=== PATIENT | female | born 1950 | race Caucasian/White ===

== ENCOUNTER 2021-06-28 15:56 | Inpatient (IN) | payer MEDICARE ==
[~2021-06-28] VITALS: Ht 157.5 cm; Wt 56.4 kg
--- NOTE | 2021-06-28 19:30 | NUR ---
Admission report received from [facility].
--- NOTE | 2021-06-28 19:59 | NUR ---
Patient arrived in the unit accompanied by 2 EMT's via gurney from [facility]. Awake, alert, conversant and pleasant. In no apparent distress. Transferred from gurney to bed with minimal assist. Able to repositioned self for comfort without difficulty. Fall precaution and safety precaution initiated. Routine admission care done. Plan of care initiated.
[2021-06-28] MEDS ORDERED: ENOX40DI SQ (20:19)
[2021-06-28] MEDS ORDERED: IBAN150T16 PO (20:19)
[2021-06-28] MEDS ORDERED: LEVO25TA9 PO (20:19)
[2021-06-28] MEDS ORDERED: ACET-73 PO (20:19)
[2021-06-28] MEDS ORDERED: PANT40TA49 PO (20:19)
[2021-06-28] MEDS ORDERED: LIDO30AD10 TD (20:19)
[2021-06-28] MEDS ORDERED: IBUP-1953 PO (20:19)
[2021-06-28 20:30] VITALS: BP 108/53
[2021-06-28] MEDS: REMEDY ESSENTIAL ZINC PASTE 113 GM TOP SCH (21:10)
[2021-06-28] MEDS ORDERED: IBANDRONATE SODIUM 150 MG PO SCH (21:45)
[2021-06-28] MEDS ORDERED: ACETAMINOPHEN ES 500 MG TABLET- SA PATIENTS-PAIN ONLY PO PRN (21:45)
[2021-06-28] MEDS ORDERED: BISACODYL 10 MG SUPP.RECT RC PRN (21:45)
[2021-06-29] MEDS: IBUPROFEN 400 MG TABLET PO PRN ×2 (02:47→08:30)
[2021-06-29 04:12] VITALS: BP 102/53
[2021-06-29] MEDS ORDERED: ACETAMINOPHEN 325 MG TABLET PO PRN (05:45)
[2021-06-29 06:43] LABS: HEMATOCRIT 38.6 % (31.2-41.9); MEAN CORPUSCULAR HEMOGLOBIN 30.7 uug (24.7-32.8); MEAN CORPUSCULAR VOLUME 88.5 fL (75.5-95.3); PLATELET COUNT (AUTO) 165 K/uL (179-408)
[2021-06-29 07:12] LABS: THYROID STIMULATING HORMONE 2.168 mIU/mL (0.358-3.740)
[2021-06-29 07:42] LABS: BILIRUBIN,TOTAL 0.3 mg/dL (0.2-1.0); CREATININE 0.8 mg/dL (0.6-1.3); MAGNESIUM 2.5 mg/dL (1.8-2.4); PHOSPHOROUS 3.7 mg/dL (2.5-4.9); POTASSIUM 5.2 mmol/L (3.5-5.1); TOTAL PROTEIN, SERUM 6.4 g/dL (6.4-8.2)
[2021-06-29 08:01] VITALS: BP 104/56
[2021-06-29] MEDS: LEVOTHYROXINE SODIUM 25 MCG TABLET PO SCH (08:29)
[2021-06-29] MEDS: PANTOPRAZOLE SODIUM 40 MG TABLET.DR PO SCH (08:30)
[2021-06-29] MEDS: REMEDY ESSENTIAL ZINC PASTE 113 GM TOP SCH ×2 (08:30→21:02)
[2021-06-29] MEDS: ENOXAPARIN SODIUM 40 MG/0.4 ML DISP.SYRIN SQ SCH (08:39)
[2021-06-29] MEDS ORDERED: LIDOCAINE 5% PATCH TD SCH (09:00)
[2021-06-29] MEDS: LIDOCAINE 5% PATCH TD SCH (09:01)
[2021-06-29] MEDS: HYDROCODONE/APAP 5-325MG TABLET PO PRN ×2 (14:26→22:03)
[2021-06-29 16:30] VITALS: BP 93/45
--- NOTE | 2021-06-29 17:19 | NUR ---
patient is alert, oriented x4, no events noted during shift, pain to right ribs managed with pain medications and with nonpharmacological interventions, effective, patient was able to participate with PT, OT services, tolerated well. no acute distress noted.
[2021-06-29 20:09] VITALS: BP 92/75
[2021-06-29] MEDS: DOCUSATE SODIUM 100 MG CAPSULE PO SCH (20:46)
[2021-06-30 04:12] VITALS: BP 105/48
[2021-06-30] MEDS: HYDROCODONE/APAP 5-325MG TABLET PO PRN ×4 (05:32→23:04)
[2021-06-30] MEDS: LEVOTHYROXINE SODIUM 25 MCG TABLET PO SCH (05:33)
[2021-06-30] MEDS: ENOXAPARIN SODIUM 40 MG/0.4 ML DISP.SYRIN SQ SCH (08:11)
[2021-06-30] MEDS: LIDOCAINE 5% PATCH TD SCH (08:12)
[2021-06-30] MEDS: REMEDY ESSENTIAL ZINC PASTE 113 GM TOP SCH ×2 (08:13→20:35)
[2021-06-30] MEDS: PANTOPRAZOLE SODIUM 40 MG TABLET.DR PO SCH (08:13)
[2021-06-30 08:29] VITALS: BP 100/47
--- NOTE | 2021-06-30 13:27 | NUR ---
INTERDISCIPLINARY TEAM CONFERENCE
[2021-06-30] MEDS ORDERED: SIMETHICONE 80 MG TAB.CHEW PO PRN (13:45)
[2021-06-30 17:17] VITALS: BP 92/48
--- NOTE | 2021-06-30 18:46 | NUR ---
patient is alert, oriented x4, no sob, resp even nonlabored, skin warm and dry to touch, no acute distress noted.
[2021-06-30 20:00] VITALS: BP 90/30
[2021-06-30] MEDS: DOCUSATE SODIUM 100 MG CAPSULE PO SCH (20:35)
[2021-06-30 21:00] VITALS: BP 120/61
[2021-07-01 04:35] VITALS: BP 104/49
[2021-07-01] MEDS: LEVOTHYROXINE SODIUM 25 MCG TABLET PO SCH (06:09)
[2021-07-01 08:05] VITALS: BP 105/50
[2021-07-01] MEDS: PANTOPRAZOLE SODIUM 40 MG TABLET.DR PO SCH (08:12)
[2021-07-01] MEDS: LIDOCAINE 5% PATCH TD SCH (08:12)
[2021-07-01] MEDS: REMEDY ESSENTIAL ZINC PASTE 113 GM TOP SCH ×2 (08:13→20:54)
[2021-07-01] MEDS: HYDROCODONE/APAP 5-325MG TABLET PO PRN ×3 (08:54→22:11)
[2021-07-01 15:22] VITALS: BP 140/59
--- NOTE | 2021-07-01 15:38 | NUR ---
INDIVIDUALIZED PLAN OF CARE
--- NOTE | 2021-07-01 18:50 | NUR ---
no events noted during shift
[2021-07-01 20:15] VITALS: BP 104/49
[2021-07-01] MEDS: DOCUSATE SODIUM 100 MG CAPSULE PO SCH (20:54)
[2021-07-02 05:13] VITALS: BP 100/48
[2021-07-02] MEDS: LEVOTHYROXINE SODIUM 25 MCG TABLET PO SCH (05:45)
[2021-07-02 08:11] VITALS: BP 102/49
[2021-07-02] MEDS: LIDOCAINE 5% PATCH TD SCH (10:13)
[2021-07-02] MEDS: PANTOPRAZOLE SODIUM 40 MG TABLET.DR PO SCH (10:13)
[2021-07-02] MEDS: HYDROCODONE/APAP 5-325MG TABLET PO PRN ×2 (10:14→22:43)
[2021-07-02] MEDS: REMEDY ESSENTIAL ZINC PASTE 113 GM TOP SCH ×2 (10:14→21:08)
[2021-07-02 15:12] VITALS: BP 101/52
[2021-07-02 20:56] VITALS: BP 99/61
[2021-07-02] MEDS: DOCUSATE SODIUM 100 MG CAPSULE PO SCH (21:08)
[2021-07-03] MEDS: IBUPROFEN 400 MG TABLET PO PRN (01:19)
[2021-07-03 04:40] VITALS: BP 96/47
[2021-07-03] MEDS: LEVOTHYROXINE SODIUM 25 MCG TABLET PO SCH (06:10)
[2021-07-03 07:33] VITALS: BP 105/47
[2021-07-03] MEDS: PANTOPRAZOLE SODIUM 40 MG TABLET.DR PO SCH (08:21)
[2021-07-03] MEDS: LIDOCAINE 5% PATCH TD SCH (08:21)
[2021-07-03] MEDS: HYDROCODONE/APAP 5-325MG TABLET PO PRN ×4 (08:22→20:35)
[2021-07-03] MEDS: REMEDY ESSENTIAL ZINC PASTE 113 GM TOP SCH ×2 (10:03→20:32)
--- NOTE | 2021-07-03 12:58 | NUR ---
out on pass for four hours to go see her sick brother. taken by family member
[2021-07-03 15:53] VITALS: BP 110/50
[2021-07-03] MEDS: DOCUSATE SODIUM 100 MG CAPSULE PO SCH (20:30)
[2021-07-03 20:36] VITALS: BP 107/54
[2021-07-04] MEDS: HYDROCODONE/APAP 5-325MG TABLET PO PRN ×4 (03:53→19:47)
[2021-07-04 04:12] VITALS: BP 121/58
[2021-07-04] MEDS: LEVOTHYROXINE SODIUM 25 MCG TABLET PO SCH (06:18)
[2021-07-04 08:00] VITALS: BP 104/57
[2021-07-04] MEDS: REMEDY ESSENTIAL ZINC PASTE 113 GM TOP SCH ×2 (08:59→20:51)
[2021-07-04] MEDS: PANTOPRAZOLE SODIUM 40 MG TABLET.DR PO SCH (08:59)
[2021-07-04] MEDS: LIDOCAINE 5% PATCH TD SCH (08:59)
[2021-07-04 16:59] VITALS: BP 108/67
[2021-07-04] MEDS: DOCUSATE SODIUM 100 MG CAPSULE PO SCH (19:47)
[2021-07-04 20:44] VITALS: BP 120/57
[2021-07-05] MEDS: HYDROCODONE/APAP 5-325MG TABLET PO PRN ×3 (04:12→23:24)
[2021-07-05 04:30] VITALS: BP 116/58
[2021-07-05] MEDS: LEVOTHYROXINE SODIUM 25 MCG TABLET PO SCH (06:17)
[2021-07-05 08:07] VITALS: BP 113/50
[2021-07-05] MEDS: LIDOCAINE 5% PATCH TD SCH (08:38)
[2021-07-05] MEDS: PANTOPRAZOLE SODIUM 40 MG TABLET.DR PO SCH (08:38)
[2021-07-05] MEDS: REMEDY ESSENTIAL ZINC PASTE 113 GM TOP SCH ×2 (08:40→20:13)
[2021-07-05 15:59] VITALS: BP 111/50
--- NOTE | 2021-07-05 18:44 | NUR ---
Patient remained stable during the shift. all needs attended. no acute distress identified. will continue to monitor/endorse to the next shift for continuity of care.
[2021-07-05 20:00] VITALS: BP 115/60
[2021-07-05] MEDS: DOCUSATE SODIUM 100 MG CAPSULE PO SCH (20:12)
[2021-07-06 04:00] VITALS: BP 101/43
[2021-07-06] MEDS: LEVOTHYROXINE SODIUM 25 MCG TABLET PO SCH (06:05)
--- NOTE | 2021-07-06 06:35 | NUR ---
No acute distress identified. remained stable during the shift. will endorse to the next shift for continuity of care.
--- NOTE | 2021-07-06 07:10 | NUR ---
RECEIVED PATIENT IN BED AWAKE ALERT AND ORIENTED DENIES PAIN OR DISCOMFORTS AT THIS TIME CALL LIGHTS AND PERSONAL BELONGINGS ARE WITHIN EASY REACH WILL CONTINUE TO OBSERVE.
[2021-07-06 08:00] VITALS: BP 102/58
[2021-07-06] MEDS: LIDOCAINE 5% PATCH TD SCH (08:58)
[2021-07-06] MEDS: PANTOPRAZOLE SODIUM 40 MG TABLET.DR PO SCH (08:58)
[2021-07-06] MEDS: REMEDY ESSENTIAL ZINC PASTE 113 GM TOP SCH ×2 (08:58→20:51)
[2021-07-06] MEDS: ENSURE ENLIVE (VAN) 240 ML LIQUID PO SCH (08:59)
[2021-07-06] MEDS: HYDROCODONE/APAP 5-325MG TABLET PO PRN ×2 (09:23→22:27)
--- NOTE | 2021-07-06 09:39 | NUR ---
DR PETERSON HERE SEEN PATIENT WITH NEW ORDERS AND NOTED.
[2021-07-06 16:00] VITALS: BP 102/40
--- NOTE | 2021-07-06 18:00 | NUR ---
ENDURANCE HAS BEEN GOOD D/C PLANNING PATIENT STATED THAT SHE WILL BE DISCHARGED TOMORROW.
[2021-07-06 20:00] VITALS: BP 117/51
[2021-07-06] MEDS: DOCUSATE SODIUM 100 MG CAPSULE PO SCH (20:50)
[2021-07-07 04:00] VITALS: BP 113/46
[2021-07-07] MEDS: LEVOTHYROXINE SODIUM 25 MCG TABLET PO SCH (06:31)
[2021-07-07 06:42] LABS: HEMATOCRIT 37.4 % (31.2-41.9); MEAN CORPUSCULAR HEMOGLOBIN 30.5 uug (24.7-32.8); MEAN CORPUSCULAR VOLUME 88.4 fL (75.5-95.3); PLATELET COUNT (AUTO) 244 K/uL (179-408)
[2021-07-07 07:15] LABS: CREATININE 0.8 mg/dL (0.6-1.3); MAGNESIUM 2.1 mg/dL (1.8-2.4); PHOSPHOROUS 4.2 mg/dL (2.5-4.9); POTASSIUM 4.8 mmol/L (3.5-5.1)
[2021-07-07 08:00] VITALS: BP 130/75
[2021-07-07] MEDS: LIDOCAINE 5% PATCH TD SCH (08:48)
[2021-07-07] MEDS: PANTOPRAZOLE SODIUM 40 MG TABLET.DR PO SCH (08:48)
[2021-07-07] MEDS: ENSURE ENLIVE (VAN) 240 ML LIQUID PO SCH (08:48)
[2021-07-07] MEDS: REMEDY ESSENTIAL ZINC PASTE 113 GM TOP SCH (08:49)
[2021-07-07] MEDS: HYDROCODONE/APAP 5-325MG TABLET PO PRN ×2 (08:56→17:16)
[2021-07-07 16:45] VITALS: BP 111/65
--- NOTE | 2021-07-07 18:20 | NUR ---
Discharge instructions provided to the patient with verbalized understanding. Discharge papers signed by and given to the patient. Patient remains alert, oriented x 4, not in any form of distress. Vital signs stable. No complain of any pain or discomfort at this time. Assisted with her needs. All belongings well accounted for. Patient discharged to home and picked up by her son Daniel via private car.
== END 2021-07-07 18:15 | disposition home health service (06) | DRG 560 ==
PROVIDERS: ADMIT Physical Medicine & Rehabilitation Pain Medicine; ATTEND Physical Medicine & Rehabilitation Pain Medicine
DX: S22.41XD Multiple fractures of ribs, right side, subsequent encounter for fracture with routine healing (principal); D68.59 Other primary thrombophilia; J98.11 Atelectasis; J90 Pleural effusion, not elsewhere classified; R53.1 Weakness; W01.0XXD Fall on same level from slipping, tripping and stumbling without subsequent striking against object, subsequent encounter; R26.2 Difficulty in walking, not elsewhere classified; E03.9 Hypothyroidism, unspecified; Z80.0 Family history of malignant neoplasm of digestive organs; Z88.0 Allergy status to penicillin; Z88.5 Allergy status to narcotic agent; D50.9 Iron deficiency anemia, unspecified; D72.819 Decreased white blood cell count, unspecified; R73.9 Hyperglycemia, unspecified
CPT/HCPCS: 36415; 71045; 83550; 83735; 84100; 84443; 85025; 97161; 97535-GO-CO; A4663; A9150; J1650